=== PATIENT | female | born 1995 | race Caucasian/White ===

== ENCOUNTER 2024-04-10 19:23 | Inpatient (IN) | payer OTHER, SELFPAY ==
[2024-04-10 19:37] VITALS: BP 131/73; PULSE 64; RESP 16; TEMP 36.6; O2SAT 98
[2024-04-10 19:42] VITALS: BMI 30.9
[2024-04-10 19:53] LABS: Absolute Lymphocyte Count 2.12 X10^3/uL (0.83-4.51); Absolute Neutrophil Count 5.4 X10^3/uL (2.0-7.7); Basophil# 0.03 X10^3/uL; Basophil% 0.4 % (0-1); Eosinophil# 0.02 X10^3/uL; Eosinophils% 0.2 % (0-5); Hematocrit 38.7 % (37-47); Hemoglobin 13.2 g/dL (12.0-15.0); Lymphocyte # 2.12 X10^3/ul (0.83-4.51); Lymphocyte % 26.1 % (19-41); Mean Corp Hgb Conc 34.1 g/dL (32-36); Mean Corpuscular Hgb 29.8 pg (27.0-32.0); Mean Corpuscular Volume 87.4 fL (81-99); Mean Platelet Vol. 11.2 fl (6.2-12.0); Monocyte# 0.56 X10^3/uL; Monocyte% 6.9 % (0-10); NRBC Flagged by Analyzer 0 % (0-5); Neutrophil # 5.35 X10^3/uL (2.7-7.7); Platelet Count 152 K/mm3 (150-450); RBC Distribution Width CV 12.6 % (11.6-14.6); RBC Distribution Width SD 39.9 fl (35.1-43.9); Red Blood Count 4.43 M/mm3 (4.2-5.4); White Blood Count 8.1 K/mm3 (4.4-11.0)
[2024-04-10] MEDS: Lactated Ringers 1,000 ML 50 ML IV (19:56)
[2024-04-10 20:26] LABS: Syphilis Antibodies Non-reactive
[2024-04-10] MEDS: 0.9% Normal Saline Single 100 ML IV.SOLN. INTRA-UTER (20:47)
[2024-04-10] MEDS: Oxytocin 15 Units/NS 250ml 15 UNITS/250 ML IV.SOLN 2 UNITS IV (22:49)
[2024-04-10 22:51] VITALS: BP 117/67; PULSE 66; RESP 16; TEMP 36.6; O2SAT 90; O2SAT 95
[2024-04-10 23:46] VITALS: BP 135/75; PULSE 60
[2024-04-11] VITALS (43 sets, daily range): BP systolic 98–122; BP diastolic 52–78; PULSE 54–80; RESP 16; TEMP 36.4–37.3; O2SAT 92–99
[2024-04-11] MEDS: LACTATED RINGERS 500 ML 999 ML IV (02:48)
--- NOTE | 2024-04-11 07:11 | PCM.HP.OB ---
HPI - General General Date of Admission: 04/10/24 Date of Service: 04/10/24 Chief Complaint: Induction of labor HPI Narrative OMAYRA SUAREZ, is a 28 F who presents elective IOL. Bev. Maternal Data Information Final SEKOU: 04/06/24 Gestational age: 40+4 PFSH PFSH Medical History no medical history Home Medications ?Medication ?Instructions ?Recorded ?Last Taken ?Type PNV#14-iron fum-FA#7-jdu-laqvorum cap PO 04/10/24 Unknown History 27 mg iron-1 mg-300 mg-50 mg capsule aspirin 81 mg tablet,delayed 81 mg PO DAILY 04/10/24 Unknown History release (Adult Aspirin Regimen) Allergy/AdvReac Type Severity Reaction Status Date / Time No Known Allergies Allergy Verified 04/10/24 20:00 Social History Smoking Status: Never smoker History Elective abortions Hx Para 0 Spontaneous abortions Hx # Term Pregnancies Ectopic pregnancies Hx # Pregnancies Multiple births # of living children NST FHR Rate Baby A Baseline: 145 Variability:: Moderate Accelerations:: 15 x 15 Decelerations:: None NST Reactive:: Yes FHR Category:: Category I Uterine Activity:: random ROS Constitutional Constitutional: Denies fatigue, fever(s) or malaise Eyes Eyes: Denies change in vision ENT HEENT: Denies dizziness or headache(s) Cardiovascular Cardiovascular: Denies chest pain, dyspnea or lightheadedness Respiratory/Chest Respiratory/Chest: Denies cough or dyspnea Gastrointestinal Gastrointestinal: Denies change in bowel habits Genitourinary Genitourinary: Denies burning urination or genital lesions Integumentary Integumentary: Denies rash Neurologic Neurologic: Denies confusion, dizziness, headache(s), numbness or weakness Vital Signs Vital Signs Vital Signs: 04/10/24 19:37 04/10/24 19:37 04/10/24 19:37 Temperature Temperature Source Temporal Pulse Rate 64 Respiratory Rate Blood Pressure 131/73 H BP Systolic 131 BP Diastolic 73 Pulse Ox 04/10/24 19:37 04/10/24 19:37 04/10/24 19:37 Temperature 97.8 F Temperature Source Pulse Rate Respiratory Rate 16 Blood Pressure BP Systolic BP Diastolic Pulse Ox 98 04/10/24 22:51 10/02/24 22:51 04/10/24 22:51 Temperature Temperature Source Temporal Pulse Rate Respiratory Rate Blood Pressure 117/67 BP Systolic 117 BP Diastolic 67 Pulse Ox 90 04/10/24 22:51 04/10/24 22:51 04/10/24 22:51 Temperature Temperature Source Pulse Rate 66 Respiratory Rate 16 Blood Pressure BP Systolic BP Diastolic Pulse Ox 95 04/10/24 22:51 04/10/24 23:46 04/10/24 23:46 Temperature 97.9 F Temperature Source Pulse Rate 60 Respiratory Rate Blood Pressure 135/75 H BP Systolic 135 BP Diastolic 75 Pulse Ox 04/11/24 02:00 04/11/24 02:00 04/11/24 03:35 Temperature Temperature Source Pulse Rate 59 L 78 Respiratory Rate Blood Pressure 114/69 BP Systolic 114 BP Diastolic 69 Pulse Ox 04/11/24 03:35 04/11/24 03:37 04/11/24 03:37 Temperature Temperature Source Pulse Rate 60 Respiratory Rate Blood Pressure 122/78 H BP Systolic 122 BP Diastolic 78 Pulse Ox 96 04/11/24 03:40 04/11/24 03:40 04/11/24 05:10 Temperature Temperature Source Pulse Rate 64 Respiratory Rate Blood Pressure 113/62 BP Systolic 113 BP Diastolic 62 Pulse Ox 99 04/11/24 05:10 04/11/24 05:10 04/11/24 05:10 Temperature Temperature Source Temporal Pulse Rate 64 Respiratory Rate 16 Blood Pressure BP Systolic BP Diastolic Pulse Ox 04/11/24 05:10 04/11/24 06:56 04/11/24 06:56 Temperature 98.1 F Temperature Source Pulse Rate 77 Respiratory Rate Blood Pressure 98/54 L BP Systolic 98 BP Diastolic 54 Pulse Ox Weight Weight: 89.448 kg Body Mass Index (BMI) 30.9 Physical Exam Const alert and no apparent distress General Appearance: cooperative HEENT normocephalic Resp normal respiratory effort Cardio regular rate GI soft to palpation GI Narrative: gravid, nontender, appropriate for gestational age Manual OB Exam: dilated 2 cm Extremity no calf tenderness General Extremity: edema Skin no wounds Rashes: No rashes noted Psych activity/motor behavior normal Labs Labs Labs: Blood Type A POSITIVE Antibody Screen NEGATIVE Hct 38.7 % (37-47) Hgb 13.2 g/dL (12.0-15.0) Syphilis Total Ab Non-reactive Assessment & Plan (1) 40 weeks gestation of : (2) Elective induction of labor planned: PLAN: Plan short bulb placed without difficulty. 2/50/-2 soft Pitocin planned after short out
--- NOTE | 2024-04-11 08:11 | PCM.PN.CNM ---
Subjective Subjective Patient pushing well with contractions. Objective Data Objective Data Vital Signs: Vital Signs Temp Pulse Resp BP Pulse Ox 97.6 F L 70 16 104/57 L 99 04/11/24 07:17 04/11/24 07:19 04/11/24 07:17 04/11/24 07:19 04/11/24 07:19 Weight: 197 lb 3.2 oz Body Mass Index (BMI) 30.9 Intake & Output: Intake and Output for Last 24 Hours 04/09/24 04/10/24 04/11/24 23:59 23:59 23:59 Intake Total 1.9 / 1.9 511.1 / 511.1 Balance 1.9 / 1.9 511.1 / 511.1 Lab / Micro Data 04/10/24 19:40 Labs: Laboratory Results - last 24 hr 04/10/24 19:40: WBC 8.1, RBC 4.43, Hgb 13.2, Hct 38.7, MCV 87.4, MCH 29.8, MCHC 34.1, RDW Std Deviation 39.9, RDW Coeff of Jeniffer 12.6, Plt Count 152, MPV 11.2, Immature Gran % (Auto) 0.400, Neut % (Auto) 66.0, Lymph % (Auto) 26.1, [place] % (Auto) 6.9, Eos % (Auto) 0.2, Baso % (Auto) 0.4, Absolute Neuts (auto) 5.4, Absolute Lymphs (auto) 2.12, Nucleated RBC % 0, Syphilis Total Ab Non-reactive, Blood Type A POSITIVE, Antibody Screen NEGATIVE Assessment & Plan (1) Elective induction of labor planned: (2) 40 weeks gestation of : (3) Spontaneous onset of labor: (4) Meconium in amniotic fluid: (5) Spontaneous rupture of amniotic membranes: PLAN: Plan Assumed management of patient at this time Pushing well with contractions Provided bedside support with position changes and pushing Provided massage and pressure point releases/ hip squeezes Anticipate
[2024-04-11] MEDS: Lidocaine 1% (20 ml mdv) 20 ML Vial INFILT (10:00)
--- NOTE | 2024-04-11 10:25 | OP.PCM_ITS ---
Assessment & Plan (1) (spontaneous vaginal delivery): (2) Laceration, obstetrical, second degree: (3) Meconium in amniotic fluid: Maternal Data Information SEKOU Calculator Estimated Delivery Date Method Current WG Current Estimate 04/06/24 Manual 40w 5d Vaginal Delivery Maternal Presentation Maternal Presentation: Elective Induction Maternal Presentation: for elective induction of labor Type of Induction: Pitocin, Sousa Bulb and Cytotec Operative Information Date of Procedure: 04/11/24 Pre-Operative Diagnosis: Term gestation, elective induction of labor Post-Operative Diagnosis: , Live female infant Surgery / Procedure Performed: Spontaneous Vaginal Delivery Type of Anesthesia: Local with 1% Lidocaine Estimated Blood Loss: 350 Time of Delivery: 09:56 Findings Description of Procedure: Provided bedside support during pushing. Patient progressed to complete dilation. Nursery staff, RT and customer relations representative to room for delivery. With good maternal effort, head delivered followed by anterior shoulder and remainder of body without any force, delay or traction. Vigorous female was delivered atraumatically and placed on maternal abdomen. Pitocin IV started for active management of the third stage of labor. Patient's bladder emptied for 200 cc clear/yellow urine. 3 vessel cord clamped and cut after delay and placed immediately skin to skin with patient. Placenta delivered spontaneously and intact. A second degree laceration was repaired with 3-0 Vicryl Rapide in usual fashion after administration of local anesthetic. Hemostasis obtained. Vaginal sweep performed. Fundus is firm and bleeding hemostatic.Perineum edematous. Sponge and sharp counts correct. Patient and infant bonding well at this time. Dr. Torres notified of delivery. Routine post orders placed. Patient and infant bonding well at this time. Presentation: Vertex Delayed Cord Clamping: Yes Post Vaginal Delivery Medications Given After Delivery: IV Pitocin Episiotomy Description: None Complication Complications: None
[2024-04-11] MEDS: Oxytocin 15 Units/NS 250ml 15 UNITS/250 ML IV.SOLN 83 UNITS IV (10:31)
[2024-04-11] MEDS: Naproxen 500 MG Tablet PO (13:05)
[2024-04-12] VITALS (9 sets, daily range): BP systolic 98–104; BP diastolic 57–64; PULSE 59–77; RESP 16–18; TEMP 36.4–37; O2SAT 97–98
[2024-04-12] MEDS: Naproxen 500 MG Tablet PO ×3 (02:37→22:07)
--- NOTE | 2024-04-12 07:04 | PCM.DC.SUM ---
Providers Date of Admission: 04/10/24 Primary Care Physician: JUICE Zeng Reason For Visit: VAG DELIVERY Diagnosis Discharge Diagnosis (1) (spontaneous vaginal delivery): Status: Acute Code(s): O80 - Encounter for full-term uncomplicated delivery (2) Laceration, obstetrical, second degree: Status: Acute Code(s): O70.1 - Second degree perineal laceration during delivery (3) Meconium in amniotic fluid: Status: Acute Code(s): P96.83 - Meconium staining Plan PPD1 Pain controlled support Desires discharge home with follow up in office Medications at Discharge Home Medications PNV#14-iron fum-FA#7-[id number]-hftjnnsp 27 mg iron-1 mg-300 mg-50 mg capsule cap PO 04/10/24 dibucaine 1 % topical ointment 1 applic topical TID PRN PRN Discomfort #0 grams 04/12/24 naproxen 500 mg tablet 500 mg PO Q8H PRN PRN Pain Score 1-10 #0 tabs 04/12/24 Hospital Course Operations None Procedures None Summary of Care Provided Minutes Spent on Discharge: 15 Hospital Course: Patient had vaginal delivery. Hospital course was uneventful. Physical Exam Narrative Patient seen at bedside. Denies pain. Ambulating and voiding without difficulty. Lochia decreased. Desires discharge home today. Const alert and oriented x3 General Appearance: Negative for in distress HEENT normocephalic Eyes General Eye: normal appearance of both eyes Neck General: normal visual inspection Chest Chest: symmetrical chest wall rise Resp normal respiratory effort and normal air movement Effort and Inspection: symmetric chest movement; Negative for tachypneic Auscultation: clear to auscultation bilaterally Cardio regular rate and regular rhythm Peripheral Pulses: pulses 2+ throughout GI normal to inspection, nondistended, normoactive bowel sounds Narrative: Ice to perineum OB / External & Speculum: vaginal bleeding and other Lochia decreasing Uterus Palpation: uterus fundus firm (Below U) Extremity normal to inspection, full ROM and normal capillary refill Skin no rashes or lesions noted Neuro oriented x3, CN's II-XII intact bilaterally and gait normal Psych mental status grossly normal, thought process normal and activity/motor behavior normal Weight / BMI Weight Weight: 197 lb 3.2 oz Body Mass Index (BMI) 30.9 ABG / Lab / Microbiology Data 04/10/24 19:40 D/C Instructions Discharge Diet: No restrictions Discharge Activity: Return to Normal Activity, No Restrictions, May Drive, May Shower and May Take a Tub Bath (Warm water only. No bath salts, soaps, bubbles) May resume sexual activity in: 6-8 weeks Weight Bearing Status: Weight bearing as tolerated Call your doctor if you observe: Fever of 101 or Higher, Inability to urinate, Using more than 1 pad per hour, Shortness of breath, Dizziness, Chest pain, Calf discomfort and Uncontrolled pain Please Follow Up With: [facility] Marlon HOLLAND When: 2 weeks in office or virtual Meaningful Use Info Meaningful Use Meaningful Use Diagnoses (Choose all that apply): None applicable Ischemic Stroke Statin Dosing Therapy Reference: STATIN DOSE THERAPY REFERENCE: * Patients > 75 years receive moderate or high dose statin therapy. * Patients 75 years or YOUNGER should receive HIGH intensity statin dose unless contraindicated. You will be required to document reason for non-treatment if statin daily dose does not meet guidelines. HIGH DOSE STATIN THERAPY DAILY Atorvastatin > than or = to 40 mg Rosuvastatin > than or = to 20 mg Amlodipine + Atorvastatin > than or = to 2.5/40 mg Ezetimibe + Simvastatin 10/80 mg Simvastatin 80mg Discharge Plan Admission Admit Date/Time: 04/10/24 19:23 Primary Reason for Your Visit: Labor and Delivery Attending Provider: Nelia Knox Primary Care Provider: Shayla Ly Discharge Orders/Prescriptions Prescriptions: New dibucaine 1 % Ointment 1 applic topical TID PRN PRN (Reason: Discomfort) Qty: 0 0RF Protocol: *Topical Application Instructions APPLICATION INSTRUCTIONS: To perineum for discomfort naproxen 500 mg Tablet 500 mg PO Q8H PRN PRN (Reason: Pain Score 1-10) Qty: 0 0RF Continued PNV #14-iron-FA#1-suz-xgioeoei 27 mg iron-1 mg -300 mg-50 mg capsule PO Discontinued aspirin [Adult Aspirin Regimen] 81 mg tablet,delayed release (DR/EC) 81 mg PO DAILY Referrals / Follow Up: Nelia Knox CNM [Med Staff - Adv Practice Prof] - Shayla Ly, [employer] [Primary Care Provider] - Disposition Disposition (needs filled in before D/C Order can be placed): Home, Self Care
[2024-04-12] MEDS: FLU VACC 2024-25(6MOS UP)/PF 45 MCG/0.5 ML SYRINGE IM (10:06)
--- NOTE | 2024-04-12 11:25 | CASEMGMT ---
Social Work Assessment Labor and Delivery Unit Patient Address:[address] [place] [id number] Phone number: [phone] Date of Referral: 04/10/24 Time of Referral:? 1960 Referred By: Francesca Blanco Date of Intervention: ??04/12/24 Time of Intervention:? 914 Reason for Referral:? substance abuse- patient's mother is an alcoholic Sw completed chart review and acknowledges social work consult. Sw presented to bedside and introduced self to mother of baby (MOB- Nori) and father of baby (FOB- Ezequiel). Sw explained reason for sw involvement and completed assessment. History obtained from: medical records, MOB and FOB. Household composition: Currently residing in the family home is MOB, FOB, and baby when medically ready for discharge. Parents deny any issues or concerns with housing, stating that it is safe and secure. Patient's parent/guardian status:? Parents have been together for 6-7 years after meeting at a [employer] ministry. No concerns of domestic violence reported. ? Medical History: ?AMOR is 28 year old female who is 1, para 0- now 1 following labor and delivery of . AMOR received routine care during with [facility]. AMOR presented to hospital for an induction of labor and delivered baby via vaginal delivery on 04/11/24. Baby, named Lin Flores, was born weighing 7lb 5oz with apgars of 8 and 10 at one and five minutes of life, respectfully. AMOR states that feeding is going well and baby will be followed by Dr. Ly for pediatrics. Educational Status:? Both parents graduated high school, AMOR has her Master's degree and is going to be starting her PhD. No concerns with reading, learning or comprehension. Financial Status: Both parents are gainfully employed outside of the home: AMOR works at [employer] and KAIN works as a social internet marketing coordinator. Infant Supplies: Parents have obtained all necessary baby supplies, including: car seat, safe sleep space, clothes, diapers and wipes. Childcare/Caregiver(s):?MOB and FOB will be the primary caregivers to baby, when both parents are working they have several family members who will help provide childcare. Transportation:?? Both parents have their drivers license and reliable means of transportation. No barriers at this time. Programs/Agencies Involved: ???Parents are not connected to any community resources that assist them financially, no mental health services or supports. Children Services/Legal Issues:??? No history of children services, no issues or concerns warranting referral to be made at this time. Behavioral Health Issues: ??Mental Health History:??Parents deny mental health history. ? Substance Use History:?No substance use prior to or during . ? Family History:MOB states that her mom has a history of alcohol abuse, however this has resolved and she is a good support for parents. Sw educated parents to be mindful of genetic dispositions and to always use healthy and safe coping mechanisms during this period opposed to seeking comfort from drugs or alcohol. Parents express understanding. ??? Drug Screens: No drug screens observed in chart review. Family/Social Stressors:? Parents deny any issues, concerns or stressors at this time. Support Systems: MOB identifies that FOB, and both sets of parents are their biggest supports. Depression/Shaken Baby/Safe Sleeping: Sw educated parents at length regarding signs and symptoms of baby blues and mood and anxiety disorders. Parents express understanding. FOB states that if MOB were to struggle he would be able to recognize that and would know how to help and support her. Sw educated parents on shaken baby prevention and ABCs of safe sleep. Parents express understanding. ASSESSMENT:? MOB and baby admitted following labor and delivery of . Both parents present and active in completion of assessment. FOB observed to hold baby lovingly and affectionately. MOB with history of family substance use, but is mindful of other healthy coping skills and does not use drugs or alcohol at this time. Parents were receptive to involvement, support and education provided. Parents have obtained all necessary baby supplies, and have natural supports in place. PLAN:?? No other services requested or indicated. MOB and baby to be discharged when medically ready. Parents were provided literature regarding: signs and symptoms of baby blues and mood and anxiety disorders, Help Me Grow, shaken baby prevention, ABCs of safe sleep and a list of county resources that are available for them should any needs present themselves. Suri Beebe, [employer] FIELD COORDINATOR, E COMMERCE ARCHITECT
[2024-04-12] MEDS: Benzocaine/Lanolin/Aloe Vera 85 GM Spray 1 SPRAY TOPICAL (14:00)
[2024-04-13 02:20] VITALS: BP 90/62; PULSE 72; RESP 16; TEMP 36.2; O2SAT 97
--- NOTE | 2024-04-13 07:52 | PCM.PN.OB ---
Subjective Subjective Patient is doing well. Pain is well-controlled. Lochia is normal. She is breast-feeding. Desires discharge today. Denies lightheadedness, dizziness, chest pain, shortness of breath, leg pain. She is tolerating a diet without nausea or vomiting. Ambulating and voiding without difficulty. Objective Data Objective Data Vital Signs: Vital Signs Temp Pulse Resp BP Pulse Ox O2 Del Method 97.2 F L 72 16 90/62 97 Room Air 04/13/24 02:20 04/13/24 02:20 04/13/24 02:20 04/13/24 02:20 04/13/24 02:20 04/13/24 02:20 Oxygen Delivery Method Room Air Weight: 197 lb 3.2 oz Body Mass Index (BMI) 30.9 Intake & Output: Intake and Output for Last 24 Hours 04/11/24 04/12/24 04/13/24 23:59 23:59 23:59 Intake Total 1696.40 / 1696.40 Output Total 450 / 450 Balance 1246.40 / 1246.40 Lab / Micro Data 04/10/24 19:40 Physical Exam Const alert and no apparent distress Constitutional Narrative: Holding General Appearance: comfortable Assessment & Plan (1) Laceration, obstetrical, second degree: (2) (spontaneous vaginal delivery): PLAN: Patient is day 2 from a vaginal delivery. Doing well and desires discharge. Discharge instructions reviewed.
[2024-04-13 08:00] VITALS: BP 96/58; PULSE 58; RESP 16; TEMP 36.4; O2SAT 99
[2024-04-13] MEDS: Senna/Docusate Sodium 1 Tablet PO (08:33)
[2024-04-13] MEDS: Naproxen 500 MG Tablet PO (08:33)
== END 2024-04-13 11:55 | disposition home or self-care (01) | DRG 807 ==
PROVIDERS: Obstetrics & Gynecology; Admitting Provider Advanced Practice Midwife; Visit Provider Advanced Practice Midwife
DX: O70.1 Second degree perineal laceration during delivery (principal); Z37.0 Single live birth; O77.0 Labor and delivery complicated by meconium in amniotic fluid; Z79.82 Long term (current) use of aspirin; Z3A.40 40 weeks gestation of pregnancy
CPT/HCPCS: 59025; 59050; 85025; 86780; 86850; 86900; 86901; 90656; 99221; J7120; G0378